=== PATIENT | male | born 1955 | race Hispanic/Latino ===

== ENCOUNTER 2019-02-17 19:20 | Emergency (ER) | payer MEDICARE, SELFPAY ==
[2019-02-17 20:07] LABS: APPEARANCE,URINE Clear (CLEAR); BILIRUBIN,URINE Negative (NEGATIVE); COLOR,URINE Yellow (YELLOW); GLUCOSE, URINE (UA) Negative (NEGATIVE); KETONES,URINE Negative (NEGATIVE); LEUKOCYTE ESTERASE ,URINE Negative (NEGATIVE); NITRATE,URINE Negative (NEGATIVE); OCCULT BLOOD,URINE Large (NEGATIVE); PH,URINE 5.5 (5.0-8.0); PROTEIN,URINE Negative (NEGATIVE)
[2019-02-17 20:12] LABS: BACTERIA,URINE Few /HPF (None Seen); MUCUS,URINE None Seen LPF (None Seen); SQUAMOUS EPITHELIAL CELL,UR 0-2 /HPF (0-2)
[2019-02-17 20:14] LABS: BASOPHILS % (AUTO) 0.7 % (0.0-5.0); EOSINOPHILS % (AUTO) 1.3 % (0.0-8.0); HEMATOCRIT 42.1 % (42-54); LYMPHOCYTES % (AUTO) 20.1 % (21.0-51.0); MEAN CORPUSCULAR HEMOGLOBIN 28.6 pg (27.0-33.0); MEAN CORPUSCULAR HGB CONC 34.2 g/dL (32.0-36.0); MEAN CORPUSCULAR VOLUME 83.6 fL (79-99); MONOCYTES % (AUTO) 7.8 % (3.0-13.0); NEUTROPHILS % (AUTO) 70.1 % (40.0-77.0); PLATELET COUNT (AUTO) 212 K/uL (130-400); RED BLOOD CELL COUNT(AUTO) 5.04 MIL/uL (4.50-6.20); RED CELL DISTRIBUTION WIDTH 14.4 % (11.0-15.5); WHITE BLOOD COUNT (AUTO) 9.7 K/uL (4.8-10.8)
[2019-02-17 20:23] LABS: CREATININE 1.1 mg/dL (0.5-1.5); POTASSIUM 3.9 mmol/L (3.5-5.1)
== END 2019-02-17 21:39 | disposition home or self-care (01) ==
LOC: EDH 19:20
DX: N39.0 Urinary tract infection, site not specified (principal); I10 Essential (primary) hypertension; R33.9 Retention of urine, unspecified; E78.5 Hyperlipidemia, unspecified; Z98.890 Other specified postprocedural states; Z88.0 Allergy status to penicillin
CPT/HCPCS: 36415; 51702; 80048; 81001; 85025

== ENCOUNTER 2019-03-17 21:32 | Emergency (ER) | payer MEDICARE ==
[2019-03-17 22:14] LABS: APPEARANCE,URINE CLOUDY (CLEAR); BILIRUBIN,URINE NEGATIVE (NEGATIVE); COLOR,URINE YELLOW (YELLOW); GLUCOSE, URINE (UA) NEGATIVE (NEGATIVE); KETONES,URINE 5 mg/dL (NEGATIVE); LEUKOCYTE ESTERASE ,URINE NEGATIVE (NEGATIVE); NITRATE,URINE NEGATIVE (NEGATIVE); OCCULT BLOOD,URINE LARGE (NEGATIVE); PH,URINE 7.5 (5.0-8.0); PROTEIN,URINE TRACE mg/dL (NEGATIVE)
[2019-03-17 22:19] LABS: BACTERIA,URINE Rare /HPF (None Seen); RBC,URINE 26-50 /HPF (0-1); SQUAMOUS EPITHELIAL CELL,UR Rare /HPF (0-2); WBC,URINE 0-1 /HPF (0-1)
[2019-03-17] MEDS ORDERED: MORPHINE SULFATE 2 MG/ML 1ML SYG ONE (23:02)
[2019-03-17 23:21] LABS: BASOPHILS % (AUTO) 0.6 % (0.0-5.0); EOSINOPHILS % (AUTO) 0.4 % (0.0-8.0); HEMATOCRIT 41.7 % (42-54); LYMPHOCYTES % (AUTO) 12.3 % (21.0-51.0); MEAN CORPUSCULAR HEMOGLOBIN 28.9 pg (27.0-33.0); MEAN CORPUSCULAR VOLUME 85.1 fL (79-99); MONOCYTES % (AUTO) 6.9 % (3.0-13.0); NEUTROPHILS % (AUTO) 79.8 % (40.0-77.0); PLATELET COUNT (AUTO) 195 K/uL (130-400); RED CELL DISTRIBUTION WIDTH 13.9 % (11.0-15.5); WHITE BLOOD COUNT (AUTO) 9.8 K/uL (4.8-10.8)
[2019-03-17 23:43] LABS: CREATININE 1.8 mg/dL (0.5-1.5); POTASSIUM 3.9 mmol/L (3.5-5.1)
[2019-03-17 23:50] LABS: ALBUMIN 4.1 g/dL (3.5-5.0); BILIRUBIN,TOTAL 0.6 mg/dL (0.2-1.0); TOTAL PROTEIN, SERUM 7.2 g/dL (6.0-8.3)
[2019-03-18] MEDS ORDERED: ONDANSETRON HCL 4 MG/2 ML VIAL ONE (00:09)
[2019-03-18] MEDS ORDERED: CEFTRIAXONE SODIUM 1 GM ONE (00:10)
[2019-03-18] MEDS ORDERED: KETOROLAC TROMETHAMINE 15MG/ML ONE (00:10)
[2019-03-18] MEDS ORDERED: MORPHINE SULFATE 2 MG/ML 1ML SYG ONE (00:10)
[2019-03-18] MEDS ORDERED: METHYLPREDNISOLONE SOD SUCC 125MG/2ML VIAL ONE (00:10)
== END 2019-03-18 01:07 | disposition home or self-care (01) ==
LOC: EDH 21:32
DX: N23 Unspecified renal colic (principal); N13.39 Other hydronephrosis; E78.5 Hyperlipidemia, unspecified; I10 Essential (primary) hypertension; Z85.46 Personal history of malignant neoplasm of prostate; Z79.899 Other long term (current) drug therapy
CPT/HCPCS: 36415; 74176; 80053; 81001; 83690; 85025; 96374; 96375; 96376; 99285; J0696; J1885; J2405; J2930

== ENCOUNTER → 2019-04-13 | Outpatient (CLI) | payer MEDICARE | END | disposition home or self-care (01) | LOC: RAH 11:41 | PROVIDERS: ATTEND Urology | DX: N20.1 Calculus of ureter (principal); N28.1 Cyst of kidney, acquired | CPT/HCPCS: 76770 ==

== ENCOUNTER 2019-11-11 16:29 | Inpatient (IN) | payer MEDICARE ==
[~2019-11-11] VITALS: Ht 167.6 cm; Wt 100.0 kg
[2019-11-11] MEDS ORDERED: ZOSYN 3.375GM+NS 50ML 50 ML IV ONE (18:59)
[2019-11-11] MEDS ORDERED: KETOROLAC TROMETHAMINE 15MG/ML ONE (18:59)
[2019-11-11 19:08] LABS: BASOPHILS % (AUTO) 0.9 % (0.0-5.0); EOSINOPHILS % (AUTO) 2.2 % (0.0-8.0); HEMATOCRIT 43.1 % (42-54); LYMPHOCYTES % (AUTO) 24.4 % (21.0-51.0); MEAN CORPUSCULAR HEMOGLOBIN 27.2 pg (27.0-33.0); MEAN CORPUSCULAR VOLUME 84.8 fL (79-99); MONOCYTES % (AUTO) 10.4 % (3.0-13.0); NEUTROPHILS % (AUTO) 61.8 % (40.0-77.0); PLATELET COUNT (AUTO) 215 K/uL (130-400); RED BLOOD CELL COUNT(AUTO) 5.08 MIL/uL (4.50-6.20); RED CELL DISTRIBUTION WIDTH 13.3 % (11.0-15.5); WHITE BLOOD COUNT (AUTO) 7.7 K/uL (4.8-10.8)
[2019-11-11 19:25] LABS: POTASSIUM 3.7 mmol/L (3.5-5.1)
[2019-11-11 19:29] LABS: ALBUMIN 3.9 g/dL (3.5-5.0); BILIRUBIN,TOTAL 0.5 mg/dL (0.2-1.0); CRP QUANTITATIVE 34.5 mg/L (0.00-9.0); TOTAL PROTEIN, SERUM 7.4 g/dL (6.0-8.3)
[2019-11-11 19:41] LABS: INR 0.9 (0.85-1.15); PROTHROMBIN TIME 9.8 SEC (9.6-11.6)
[2019-11-11 20:19] LABS: ERYTHROCYTE SEDIMENTATION RATE 15 MM/HR (0-20)
[2019-11-12] MEDS ORDERED: ONDANSETRON HCL 4 MG/2 ML VIAL IV PRN
[2019-11-12] MEDS ORDERED: KETOROLAC TROMETHAMINE 15MG/ML IV PRN
[2019-11-12] MEDS ORDERED: ACETAMINOPHEN 325 MG TAB PO PRN ×2
[2019-11-12 03:00] VITALS: BP 163/96
[2019-11-12] MEDS ORDERED: MELO-108 PO (03:53)
[2019-11-12] MEDS ORDERED: LISI40TA4 PO (03:53)
[2019-11-12] MEDS ORDERED: METO50TA18 PO (03:53)
[2019-11-12 04:33] LABS: BASOPHILS % (AUTO) 0.8 % (0.0-5.0); HEMATOCRIT 39.4 % (42-54); MEAN CORPUSCULAR HEMOGLOBIN 26.8 pg (27.0-33.0); MEAN CORPUSCULAR VOLUME 83.8 fL (79-99); MONOCYTES % (AUTO) 10.3 % (3.0-13.0); NEUTROPHILS % (AUTO) 54.4 % (40.0-77.0); PLATELET COUNT (AUTO) 191 K/uL (130-400); RED CELL DISTRIBUTION WIDTH 13.3 % (11.0-15.5); WHITE BLOOD COUNT (AUTO) 6.2 K/uL (4.8-10.8)
[2019-11-12 05:12] LABS: ALBUMIN 3.4 g/dL (3.5-5.0); BILIRUBIN,TOTAL 0.7 mg/dL (0.2-1.0); POTASSIUM 3.9 mmol/L (3.5-5.1); TOTAL PROTEIN, SERUM 6.5 g/dL (6.0-8.3)
[2019-11-12 05:46] LABS: ERYTHROCYTE SEDIMENTATION RATE 15 MM/HR (0-20)
[2019-11-12] MEDS ORDERED: ZOSYN 3.375GM+NS 50ML 50 ML IV SCH (07:13)
[2019-11-12 08:30] VITALS: BP 168/91
[2019-11-12] MEDS: FAMOTIDINE/PF 20 MG/2 ML VIAL IV SCH ×2 (09:03→20:23)
[2019-11-12] MEDS ORDERED: VANCOMYCIN PROTOCOL PER PHARMACY IV SCH (12:00)
[2019-11-12] MEDS ORDERED: VANCOMYCIN 2 GM in SODIUM CHLORIDE 0.9% 500ML 500 ML IV ONE (13:00)
[2019-11-12] MEDS ORDERED: COMPOUND IV REFRIGERATED 1 EACH IVSOLN MISC PRN (13:00)
[2019-11-12 13:44] VITALS: BP 179/94
--- NOTE | 2019-11-12 14:38 | NUR ---
DC PLAN VISITED WITH PATIENT. PATIENT LIVES WITH SPOUSE. INDEPENDENT ABLE TO PERFORM ADL'S. PATIENT HAS NO SERVICES OR DME'S. FEELS SAFE TO RETURN HOME. Addendum: 11/12/19 at 1439 by OMAR SANDOVAL RN CM Amended: Links added.
[2019-11-12] MEDS: LEVOFLOXACIN 500 MG/D5W 100 ML 100 ML IV SCH (17:58)
[2019-11-12] MEDS ORDERED: PHARMACY COMMUNICATION MISC SCH (18:00)
[2019-11-12 19:30] VITALS: BP 185/88
[2019-11-12] MEDS ORDERED: HYDRALAZINE HCL 20 MG/ML VIAL IV PRN (20:00)
[2019-11-12] MEDS: LISINOPRIL 20 MG TABLET PO SCH (20:23)
[2019-11-12] MEDS: METOPROLOL TARTRATE 50 MG TAB PO SCH (20:23)
[2019-11-12 23:14] VITALS: BP 162/84
[2019-11-13] MEDS: VANCOMYCIN 1GM+NS 250ML 250 ML IV SCH ×2 (00:08→12:38)
[2019-11-13 03:40] VITALS: BP 152/80
[2019-11-13 05:38] LABS: HEMOGLOBIN A1C 6.6 % (4.0-6.0)
--- NOTE | 2019-11-13 06:53 | NUR ---
PATIENT UPDATE Pt's 4th finger on the rt hand still with some swelling but overall able to move the rt hand better. Stated feeling a whole lot better. Continues with the antibiotic as prescribed. No complaints of pain the whole night.
[2019-11-13] MEDS: LISINOPRIL 20 MG TABLET PO SCH ×2 (09:24→22:03)
[2019-11-13] MEDS: METOPROLOL TARTRATE 50 MG TAB PO SCH ×2 (09:24→22:03)
[2019-11-13] MEDS: FAMOTIDINE/PF 20 MG/2 ML VIAL IV SCH ×2 (09:25→22:03)
[2019-11-13 09:26] VITALS: BP 170/77
[2019-11-13 12:30] VITALS: BP 165/84
[2019-11-13] MEDS ORDERED: GADODIAMIDE 10 MMOL/20 ML VIAL IV ONE (15:39)
[2019-11-13] MEDS ORDERED: DIPH,PERTUSS(ACELL),TET VAC/PF 0.5 ML VIAL IM ONE (16:00)
[2019-11-13] MEDS ORDERED: AMLODIPINE BESYLATE 5 MG TAB PO SCH (18:00)
[2019-11-13] MEDS: LEVOFLOXACIN 500 MG/D5W 100 ML 100 ML IV SCH (18:47)
[2019-11-13 20:59] VITALS: BP 156/84
[2019-11-14 00:05] VITALS: BP 141/70
[2019-11-14] MEDS: VANCOMYCIN 1GM+NS 250ML 250 ML IV SCH (00:27)
[2019-11-14 04:51] VITALS: BP 136/77
--- NOTE | 2019-11-14 07:54 | NUR ---
COMFORT Pt able to move the rt hand better , swelling less. Medicated once last night with toradol 15 mg given iv for mostly the rt upper arm discomfort more than the 4th finger on the rt hand. Pain med afforded relief, vanco trough last night at 7.8, result faxed to pharmacy.
[2019-11-14] MEDS ORDERED: VANCOMYCIN 1GM+NS 250ML 250 ML IV SCH (09:00)
[2019-11-14] MEDS ORDERED: AMLODIPINE BESYLATE 5 MG TAB PO SCH (09:00)
[2019-11-14 09:08] VITALS: BP 151/80
[2019-11-14] MEDS: METOPROLOL TARTRATE 50 MG TAB PO SCH (10:27)
[2019-11-14] MEDS: LISINOPRIL 20 MG TABLET PO SCH (10:28)
[2019-11-14] MEDS: FAMOTIDINE/PF 20 MG/2 ML VIAL IV SCH (10:29)
[2019-11-14 11:47] VITALS: BP 155/60
[2019-11-14] MEDS ORDERED: CEFUROXIME AXETIL 250 MG TABLET PO SCH (12:00)
[2019-11-14] MEDS ORDERED: DOXYCYCLINE HYCLATE 100 MG TABLET PO SCH (12:00)
[2019-11-14] MEDS ORDERED: PHARMACY COMMUNICATION MISC SCH (12:45)
[2019-11-14 16:13] VITALS: BP 178/85
[2019-11-14 16:31] VITALS: BP 164/69
--- NOTE | 2019-11-14 18:40 | NUR ---
PER MD ORDERS DISCHARGE INSTRUCTIONS GIVEN TO PT AND DAUGHTER NANI. INSTRUCTED TO FOLLOW UP WITH DR CABALLERO IN 2 WEEKS,, AND ON THE IMPORTANCE OF CONTINUING TO TAKE BLOOD PRESSURE MEDS AND ANTIBIOTICS PRESCRIBED BY MD. BOTH STATE UNDERSTANDING. IV REMOVED, TIP INTACT.
== END 2019-11-14 17:15 | disposition home or self-care (01) | DRG 603 ==
LOC: EDH 16:29 → EDHIP 23:50 → 3DH 11-12 02:54
PROVIDERS: ADMIT Internal Medicine; ATTEND Internal Medicine
PROC: 3E0234Z Introduction of Serum, Toxoid and Vaccine into Muscle, Percutaneous Approach (ICD-10-PCS; principal; 2019-11-13)
DX: L03.011 Cellulitis of right finger (principal); E78.5 Hyperlipidemia, unspecified; I10 Essential (primary) hypertension; E66.9 Obesity, unspecified; Z68.35 Body mass index [BMI] 35.0-35.9, adult; Z88.0 Allergy status to penicillin; Z85.46 Personal history of malignant neoplasm of prostate; Z23 Encounter for immunization
CPT/HCPCS: 36415; 73140; 73200; 73220; 80053; 80202; 82948; 83036; 85025; 85610; 85651; 85730; 86140; 87040; 90715; A9579; G0378; J0360; J1885; J1956; J2543; J3370; J3490; J7040

== ENCOUNTER 2020-06-09 01:13 | Emergency (ER) | payer MEDICARE ==
[~2020-06-09 01:13] MED LIST: LISI40TA4 PO; MELO-108 PO; METO50TA18 PO
[2020-06-09] MEDS ORDERED: ASPIRIN 325 MG TABLET ONE (01:22)
[2020-06-09 01:26] LABS: BASOPHILS % (AUTO) 0.8 % (0.0-5.0); EOSINOPHILS % (AUTO) 2.6 % (0.0-8.0); HEMATOCRIT 43.7 % (42-54); LYMPHOCYTES % (AUTO) 33.5 % (21.0-51.0); MEAN CORPUSCULAR HEMOGLOBIN 27.8 pg (27.0-33.0); MEAN CORPUSCULAR HGB CONC 33.2 g/dL (32.0-36.0); MEAN CORPUSCULAR VOLUME 83.9 fL (79-99); MONOCYTES % (AUTO) 9.2 % (3.0-13.0); NEUTROPHILS % (AUTO) 53.4 % (40.0-77.0); PLATELET COUNT (AUTO) 223 K/uL (130-400); RED BLOOD CELL COUNT(AUTO) 5.21 MIL/uL (4.50-6.20); RED CELL DISTRIBUTION WIDTH 12.6 % (11.0-15.5); WHITE BLOOD COUNT (AUTO) 7.6 K/uL (4.8-10.8)
[2020-06-09 01:39] LABS: CREATININE 1.1 mg/dL (0.5-1.5); POTASSIUM 3.7 mmol/L (3.5-5.1)
[2020-06-09 01:40] LABS: INR 0.95 (0.85-1.15); PROTHROMBIN TIME 10.2 SEC (9.6-11.6)
[2020-06-09 01:42] LABS: PARTIAL THROMBOPLASTIN TIME 26.5 SEC (26.3-35.5)
[2020-06-09 01:44] LABS: ALBUMIN 3.7 g/dL (3.5-5.0); BILIRUBIN,TOTAL 0.4 mg/dL (0.2-1.0); TOTAL PROTEIN, SERUM 6.8 g/dL (6.0-8.3)
[2020-06-09] MEDS ORDERED: KETOROLAC TROMETHAMINE 15MG/ML ONE (02:10)
[2020-06-09] MEDS ORDERED: DIAZEPAM 5 MG/ML 2 ML SYG ONE (02:10)
== END 2020-06-09 03:49 | disposition home or self-care (01) ==
LOC: EDH 01:13
DX: G44.229 Chronic tension-type headache, not intractable (principal); E78.5 Hyperlipidemia, unspecified; I10 Essential (primary) hypertension; Z88.0 Allergy status to penicillin; Z79.899 Other long term (current) drug therapy
CPT/HCPCS: 36415; 71045; 80053; 84484; 85025; 85610; 85730; 93005; 96374; 96375; 99285; J1885; J3360

== ENCOUNTER → 2020-07-05 | Outpatient (CLI) | payer MEDICARE ==
[~2020-07-05] MED LIST changes: +IOHEXOL-350 50ML VIAL IV ONE
== END | disposition home or self-care (01) ==
LOC: RAH 12:50
PROVIDERS: ATTEND Internal Medicine
DX: R51.9 Headache, unspecified (principal)
CPT/HCPCS: 70470; Q9967

== ENCOUNTER 2021-03-15 02:37 | Emergency (ER) | payer MEDICARE ==
[~2021-03-15] VITALS: Ht 170.2 cm; Wt 105.2 kg
[~2021-03-15 02:37] MED LIST changes: -IOHEXOL-350 50ML VIAL IV ONE; -LISI40TA4 PO; +LISI40TA9 PO
[2021-03-15] MEDS ORDERED: 0.9%NACL 1000ML 1,000 ML IV ONE (03:30)
[2021-03-15 03:37] LABS: EOSINOPHILS % (AUTO) 2.6 % (0.0-8.0); HEMATOCRIT 42.4 % (42-54); LYMPHOCYTES % (AUTO) 27.3 % (21.0-51.0); MEAN CORPUSCULAR HEMOGLOBIN 28.3 pg (27.0-33.0); MEAN CORPUSCULAR HGB CONC 33.3 g/dL (32.0-36.0); MONOCYTES % (AUTO) 9.4 % (3.0-13.0); NEUTROPHILS % (AUTO) 59.1 % (40.0-77.0); PLATELET COUNT (AUTO) 202 K/uL (130-400); RED BLOOD CELL COUNT(AUTO) 4.99 MIL/uL (4.50-6.20); RED CELL DISTRIBUTION WIDTH 13.4 % (11.0-15.5)
[2021-03-15 03:41] LABS: CREATININE 1.1 mg/dL (0.5-1.5)
[2021-03-15 03:44] LABS: APPEARANCE,URINE Clear (CLEAR); BILIRUBIN,URINE Negative (NEGATIVE); COLOR,URINE Yellow (YELLOW); GLUCOSE, URINE (UA) Negative (NEGATIVE); KETONES,URINE Negative (NEGATIVE); LEUKOCYTE ESTERASE ,URINE Negative (NEGATIVE); NITRATE,URINE Negative (NEGATIVE); OCCULT BLOOD,URINE Negative (NEGATIVE); PH,URINE 5.5 (5.0-8.0); PROTEIN,URINE Negative (NEGATIVE)
[2021-03-15 03:45] LABS: BILIRUBIN,TOTAL 0.8 mg/dL (0.2-1.0); TOTAL PROTEIN, SERUM 7.2 g/dL (6.0-8.3)
[2021-03-15] MEDS ORDERED: ORPH-43 PO (05:26)
[2021-03-15] MEDS ORDERED: MELO7.5T12 PO (05:26)
[2021-03-15] MEDS ORDERED: DICY20TA2 PO (05:26)
[2021-03-15] MEDS ORDERED: KETOROLAC 30MG VIAL (30MG/ML) IV ONE (05:30)
[2021-03-15 05:35] VITALS: BP 133/77
== END 2021-03-15 06:03 | disposition home or self-care (01) ==
LOC: EDH 02:37
DX: N23 Unspecified renal colic (principal); E78.5 Hyperlipidemia, unspecified; I10 Essential (primary) hypertension; E86.1 Hypovolemia; Z79.1 Long term (current) use of non-steroidal anti-inflammatories (NSAID); Z79.899 Other long term (current) drug therapy; Z87.442 Personal history of urinary calculi; Z88.0 Allergy status to penicillin
CPT/HCPCS: 36415; 74176; 80053; 81003; 83690; 85025; 96361; 96374; 99284; J1885; J7030

== ENCOUNTER 2023-01-31 10:17 | Emergency (ER) | payer MEDICARE ==
[~2023-01-31] VITALS: Ht 170.2 cm; Wt 104.3 kg
[~2023-01-31 10:17] MED LIST changes: +DICY20TA2 PO; +MELO7.5T12 PO; +ORPH100T4 PO
[2023-01-31 11:03] LABS: BASOPHILS # (AUTO) 0.04 K/uL (0.00-0.20); BASOPHILS % (AUTO) 0.9 % (0.0-5.0); EOSINOPHILS # (AUTO) 0.06 K/uL (0.00-0.70); EOSINOPHILS % (AUTO) 1.4 % (0.0-8.0); HEMATOCRIT 40.3 % (42-54); IMMATURE GRANULOCYTE ABSOLUTE 0.11 K/uL (0-1); LYMPHOCYTES # (AUTO) 0.8 K/uL (1.0-4.8); LYMPHOCYTES % (AUTO) 19.3 % (21.0-51.0); MEAN CORPUSCULAR HEMOGLOBIN 27.1 pg (27.0-33.0); MEAN CORPUSCULAR HGB CONC 32.5 g/dL (32.0-36.0); MEAN CORPUSCULAR VOLUME 83.4 fL (79-99); MONOCYTES # (AUTO) 0.4 K/uL (0.1-1.0); MONOCYTES % (AUTO) 10.2 % (3.0-13.0); NEUTROPHILS # (AUTO) 2.8 K/uL (1.8-7.7); NEUTROPHILS % (AUTO) 65.6 % (40.0-77.0); PLATELET COUNT (AUTO) 181 K/uL (130-400); RED BLOOD CELL COUNT(AUTO) 4.83 MIL/uL (4.50-6.20); RED CELL DISTRIBUTION WIDTH 13.2 % (11.0-15.5); WHITE BLOOD COUNT (AUTO) 4.3 K/uL (4.8-10.8)
[2023-01-31 11:18] LABS: ALBUMIN 3.6 g/dL (3.5-5.0); BILIRUBIN,TOTAL 0.6 mg/dL (0.2-1.0); CREATININE 0.8 mg/dL (0.5-1.5); POTASSIUM 4.2 mmol/L (3.5-5.1); TOTAL PROTEIN, SERUM 6.9 g/dL (6.0-8.3)
[2023-01-31 11:27] LABS: INR < 0.93 (0.85-1.15); PROTHROMBIN TIME 10.3 SEC (9.6-11.6)
[2023-01-31 11:28] LABS: PARTIAL THROMBOPLASTIN TIME 27.3 SEC (26.3-35.5)
[2023-01-31 11:32] LABS: B-TYPE NATRIURETIC PEPTIDE 39 pg/mL (0-100)
[2023-01-31 12:05] LABS: ADD UA MICROSCOPIC NO; APPEARANCE,URINE CLEAR (CLEAR); BILIRUBIN,URINE NEGATIVE (NEGATIVE); COLOR,URINE LIGHT-YELLOW (YELLOW); GLUCOSE, URINE (UA) NEGATIVE (NEGATIVE); KETONES,URINE NEGATIVE (NEGATIVE); LEUKOCYTE ESTERASE ,URINE NEGATIVE Leu/uL (NEGATIVE); NITRATE,URINE NEGATIVE (NEGATIVE); OCCULT BLOOD,URINE NEGATIVE (NEGATIVE); PH,URINE 5.5 (5.0-8.0); PROTEIN,URINE NEGATIVE (NEGATIVE); UROBILINOGEN,URINE 0.2 mg/dL (0.2-1.0)
[2023-01-31] MEDS ORDERED: MECLIZINE HCL 25 MG TABLET PO ONE (14:00)
[2023-01-31] MEDS ORDERED: SOLU-MEDROL 40MG VIAL IVP ONE (14:00)
[2023-01-31] MEDS ORDERED: MECL-160 PO (16:36)
[2023-01-31] MEDS ORDERED: FLUT16H EN (16:36)
[2023-01-31 16:50] VITALS: BP 156/88; PULSE 72; RESP 16; O2SAT 98
== END 2023-01-31 17:05 | disposition home or self-care (01) ==
LOC: EDH 10:17
DX: H81.10 Benign paroxysmal vertigo, unspecified ear (principal); E11.9 Type 2 diabetes mellitus without complications; I10 Essential (primary) hypertension; Z79.1 Long term (current) use of non-steroidal anti-inflammatories (NSAID); Z79.899 Other long term (current) drug therapy; Z88.0 Allergy status to penicillin
CPT/HCPCS: 99285; 96374; 70450; 71045; 82550; 84484; 80053; 83880; 85025; 85610; 85730; 81003; 36415; 93005; J2920

== ENCOUNTER 2023-07-08 09:58 | Emergency (ER) | payer MEDICARE ==
[~2023-07-08] VITALS: Ht 172.7 cm; Wt 104.3 kg
[~2023-07-08 09:58] MED LIST changes: +FLUT16H EN; +MECL-302 PO
[2023-07-08 10:25] LABS: RAPID GROUP A STREP negative (NEGATIVE)
[2023-07-08 10:37] LABS: SARS-CoV-2, RNA, NAAT POSITIVE SARS CoV-2 (NEGATIVE)
[2023-07-08 10:43] LABS: INFLUENZA TYPE A Negative For Type A (NEGATIVE); INFLUENZA TYPE B Negative For Type B (NEGATIVE)
[2023-07-08] MEDS ORDERED: PRED20TA3 PO (13:15)
[2023-07-08] MEDS ORDERED: BROM118S48 PO (13:15)
[2023-07-08 13:26] VITALS: BP 155/80; PULSE 72; RESP 16; O2SAT 97
== END 2023-07-08 13:30 | disposition home or self-care (01) ==
LOC: EDH 09:58
DX: U07.1 COVID-19 (principal); B34.9 Viral infection, unspecified; I10 Essential (primary) hypertension; E11.9 Type 2 diabetes mellitus without complications; Z79.899 Other long term (current) drug therapy; Z98.890 Other specified postprocedural states; Z88.0 Allergy status to penicillin
CPT/HCPCS: 71045; 87635; 87804; 87880

== ENCOUNTER 2024-01-23 06:09 | Emergency (ER) | payer MEDICARE ==
[~2024-01-23] VITALS: Ht 172.7 cm; Wt 103.4 kg
[~2024-01-23 06:09] MED LIST changes: +BROM118S48 PO; +PRED20TA3 PO
[2024-01-23 07:02] LABS: BASOPHILS # (AUTO) 0.07 K/uL (0.00-0.20); BASOPHILS % (AUTO) 1.3 % (0.0-5.0); EOSINOPHILS # (AUTO) 0.11 K/uL (0.00-0.70); HEMATOCRIT 40.1 % (42-54); IMMATURE GRANULOCYTE ABSOLUTE 0.02 K/uL (0-1); LYMPHOCYTES # (AUTO) 1.4 K/uL (1.0-4.8); LYMPHOCYTES % (AUTO) 25.2 % (21.0-51.0); MEAN CORPUSCULAR HEMOGLOBIN 27.9 pg (27.0-33.0); MEAN CORPUSCULAR HGB CONC 33.2 g/dL (32.0-36.0); MEAN CORPUSCULAR VOLUME 84.1 fL (79-99); MONOCYTES # (AUTO) 0.5 K/uL (0.1-1.0); MONOCYTES % (AUTO) 9.6 % (3.0-13.0); NEUTROPHILS # (AUTO) 3.3 K/uL (1.8-7.7); NEUTROPHILS % (AUTO) 61.5 % (40.0-77.0); PLATELET COUNT (AUTO) 172 K/uL (130-400); RED BLOOD CELL COUNT(AUTO) 4.77 MIL/uL (4.50-6.20); RED CELL DISTRIBUTION WIDTH 13.6 % (11.0-15.5); WHITE BLOOD COUNT (AUTO) 5.4 K/uL (4.8-10.8)
[2024-01-23 07:38] LABS: ALBUMIN 3.6 g/dL (3.5-5.0); BILIRUBIN,TOTAL 0.8 mg/dL (0.2-1.0); POTASSIUM 4.5 mmol/L (3.5-5.1); TOTAL PROTEIN, SERUM 6.7 g/dL (6.0-8.3)
[2024-01-23] MEDS: KETOROLAC 15MG/ML VIAL (15MG/ML) IM ONE (08:43)
[2024-01-23 10:08] LABS: INFLUENZA TYPE A Negative For Type A (NEGATIVE); INFLUENZA TYPE B Negative For Type B (NEGATIVE)
[2024-01-23 10:30] LABS: SARS-CoV-2, RNA, NAAT NEGATIVE SARS CoV-2 (NEGATIVE)
[2024-01-23] MEDS: amLODIPine 2.5 MG TAB PO ONE (10:31)
[2024-01-23] MEDS ORDERED: METOPROLOL TARTRATE 1 MG/ML 5ML VIAL IV ONE (11:00)
[2024-01-23] MEDS: SOLU-MEDROL 40MG VIAL IVP ONE (11:29)
[2024-01-23] MEDS: acetaMINOPHEN 500 MG TABLET PO ONE (13:13)
[2024-01-23] MEDS: hydrALAZine HCL 10 MG TABLET PO SCH (13:44)
[2024-01-23 14:37] VITALS: BP 151/82; PULSE 63; RESP 17; O2SAT 98
== END 2024-01-23 14:51 | disposition home or self-care (01) ==
LOC: EDH 06:09
DX: R51.9 Headache, unspecified (principal); I10 Essential (primary) hypertension; E11.9 Type 2 diabetes mellitus without complications; E66.01 Morbid (severe) obesity due to excess calories; Z20.822 Contact with and (suspected) exposure to COVID-19; Z79.52 Long term (current) use of systemic steroids; Z79.899 Other long term (current) drug therapy; Z88.0 Allergy status to penicillin; Z98.890 Other specified postprocedural states
CPT/HCPCS: 99285; 96374; 71045; 87635; 80053; 85025; 87804 ×2; 82948; 36415; 96372; J2919; J1885

== ENCOUNTER 2025-03-09 10:12 | Emergency (ER) | payer OTHER, MEDICARE ==
[~2025-03-09] VITALS: Ht 170.2 cm; Wt 104.3 kg
[~2025-03-09 10:12] MED LIST changes: +LISI40TA15 PO; -LISI40TA9 PO
--- NOTE | 2025-03-09 10:25 | ERN ---
ED Note History of Present Illness Stated Complaint: DIZZY Chief Complaint: Dizzy/Light Headed Time Seen by MD: 10:14 Dictation: PATIENT IS A 69-YEAR-OLD MALE COMING IN TODAY WITH COMPLAINTS OF HAVING A FRONTAL HEADACHE BEING LIGHTHEADED FOR THE LAST THREE DAYS. HE HAS HAD NO NAUSEA NO VOMITING NO DIARRHEA NO CHEST PAIN NO BACK PAIN NO SOB. HE STATES HE HAS HAD INTERMITTENT BOUTS OF DIZZINESS. NIH IS 0 ON APPROACH AND GAIT IS STEADY TO TRIAGE ROOM. HE STATES HE HAS TAKEN A SINGLE MEDICATION FOR HEADACHE IN THE LAST THREE DAYS AND DID NOT GO SEE HIS DOCTOR ON-CALL. DENIES FEVER CHILLS NO LOSS OF TASTE OR SMELL. Allergies: Coded Allergies: Penicillins (Unverified Allergy, Unknown, 02/17/19) Home Meds Active Scripts Prednisone (Prednisone) 20 Mg Tablet, 2 TAB PO DAILY for 5 Days, #10 TAB 0 Refills Prov:ROBB NAVA ENDOSCOPY SPECIALTY TECHNICIAN 07/08/23 D-Methorphan Hb/P-Epd HCl/Bpm (Bromfed Dm Cough Syrup) 2 Mg-30 Mg-10 Mg/5 Ml Syrup, 5 ML PO Q6HPRN PRN for COUGH/COLD SYMPTOMS, #240 ML Prov:ROBB NAVA ENDOSCOPY SPECIALTY TECHNICIAN 07/08/23 Fluticasone Propionate (Flonase Nasal Homer) 50 Mcg/[place], 1 SPRAY EN DAILY for 14 Days, #1 INHALER 0 Refills Prov:NEERU LONGORIA MD 01/31/23 Meclizine HCl (Meclizine HCl) 25 Mg Tablet, 25 MG PO TID PRN for VERTIGO, #30 TAB 0 Refills Prov:NEERU LONGORIA MD 01/31/23 Dicyclomine HCl (Bentyl) 20 Mg Tab, 20 MG PO Q6HPRN, #20 TAB 0 Refills Prov:MARIBELL PEARL MD 03/15/21 Orphenadrine Citrate (Orphenadrine Citrate) 100 Mg Tablet.er, 100 MG PO [id number], #20 TAB 0 Refills Prov:MARIBELL PEARL MD 03/15/21 Meloxicam (Mobic) 7.5 Mg Tablet, 7.5 MG PO DAILY, #10 TAB 0 Refills Prov:MARIBELL PEARL MD 03/15/21 Reported Medications Meloxicam (Meloxicam) 15 Mg Tablet, 15 MG PO DAILY, TAB 11/12/19 Lisinopril (Lisinopril) 40 Mg Tablet, 40 MG PO DAILY, TAB 11/12/19 Metoprolol Tartrate (Metoprolol Tartrate) 50 Mg Tablet, 50 MG PO BID, TAB 11/12/19 Past Medical History Past Medical History: Diabetes-Type II, High Cholesterol, Hypertension Additional Past Medical Hx: PROSTATE Surgical History: None Surgical History Other: PROSTATE SX Family History: Negative Social History: Negative, Lives with family RN Note Reviewed/Agreed w/PFSH: Yes Review of System Dictation CONSTITUTIONAL: NEGATIVE EXCEPT FOR HPI HEAD/FACE: NEGATIVE EXCEPT FOR HPI EENT: NEGATIVE EXCEPT FOR HPI RESPIRATORY: NEGATIVE EXCEPT FOR HPI GASTROINTESTINAL/ABDOMINAL: NEGATIVE EXCEPT FOR HPI GENITOURINARY: NEGATIVE EXCEPT FOR HPI MUSCULOSKELETAL: NEGATIVE EXCEPT FOR HPI INTEGUMENTARY: NEGATIVE EXCEPT FOR HPI NEUROLOGICAL/PSYCH: NEGATIVE EXCEPT FOR HPI FRONTAL HEADACHE INTERMITTENT DIZZINESS HEMATOLOGIC/LYMPHATIC: NEGATIVE EXCEPT FOR HPI ALL SYSTEMS NEGATIVE, EXCEPT NOTED ABOVE. 13 POINT REVIEW OF SYSTEMS ASSESSED AND ALL NEGATIVE EXCEPT FOR ABOVE. Initial Vital Sign VS Vital Signs Date Time Temp Pulse Resp B/P (MAP) Pulse Ox O2 Delivery O2 Flow Rate FiO2 03/09/25 10:15 97.5 75 17 158/75 100 Room Air 03/09/25 13:23 0 21 Physical Exam Dictation VITAL SIGNS REVIEWED GENERAL APPEARANCE: ALERT, ORIENTED X 3, N MILD ACUTE DISTRESS, WELL DEVELOPED, NOURISHED. HEAD AND FACE: NON-TRAUMATIC. NO FRONTAL ETHMOID OR MAXILLARY TENDERNESS WITH PALPATION EYES: PERRL, PINK CONJUNCTIVAS, EYELID NO TRAUMA, ANTERIOR CHAMBER WITH ARCUS SENILIS. EARS: PINNAS INTACT AND NO SIGNS OF TRAUMA OR ERYTHEMA EAR CANALS CLEAR AND NO DISCHARGE TM NO ERYTHEMA NOSE: NO DISCHARGE, NO BLEEDING. OROPHARYNX: MOUTH NORMAL, TONGUE PINK, PHARYNX CLEAR,NO ERYTHEMA, TONSILS NO EXUDATES, NO ABSCESSES NOTED, MUCOUS MEMBRANE MOIST NECK: SUPPLE, NON-TENDER, NO THYROMEGALY, NO MASSES, NO JVD, NO BRUITS BREAST:DEFERRED CHEST:NO TENDERNESS, NO CREPITUS, NO PARADOXICAL MOVEMENT, NO RETRACTIONS LUNGS:CLEAR, WELL-VENTILATED, SYMMETRIC, NO RALES, NO WHEEZING, NO RHONCHI, NO STRIDOR, GOOD BREATH SOUNDS BILATERALLY HEART: REGULAR RATE, REGULAR RHYTHM, NO MURMUR, NO GALLOPS VASCULAR: NO PERIPHERAL EDEMA, ABDOMEN: SOFT, POSITIVE BOWEL SOUNDS, NONDISTENDED, NO GUARDING, NONTENDER, NO REBOUND, NO MASSES NO HEPATOMEGALY, NO SPLENOMEGALY, NO CHRISTIAN'S SIGN, NO HERNIAS. RECTAL: DEFERRED GENITAL: DEFERRED NEUROLOGICAL: NORMAL SPEECH, MOTOR FUNCTION INTACT, SENSORY FUNCTION INTACT NIH IS 0 MUSCULOSKELETAL: NECK NONTENDER, FULL RANGE OF MOTION, BACK NONTENDER, FULL RANGE OF MOTION, EXTREMITIES: NONTENDER, FULL RANGE OF MOTION SKIN: COLOR PINK, DRY, NO TURGOR, NO RASH, NO LACERATIONS, NO ABRASIONS, NO CONTUSIONS. LYMPHATIC: DEFERRED Results (Laboratory/Radiology) Laboratory/Radiology Laboratory Tests Test 03/09/25 10:25 03/09/25 10:38 03/09/25 13:25 Urine Color LIGHT-YELLOW (YELLOW) Urine Appearance CLEAR (CLEAR) Urine pH 6.0 (5.0-8.0) Urine Specific [place] 1.018 (1.001-1.031) Urine Protein NEGATIVE mg/dL (NEGATIVE) Urine Glucose (UA) NEGATIVE mg/dL (NEGATIVE) Urine Ketones NEGATIVE mg/dL (NEGATIVE) Urine Occult Blood NEGATIVE (NEGATIVE) Urine Nitrate NEGATIVE (NEGATIVE) Urine Bilirubin NEGATIVE mg/dL (NEGATIVE) Urine Urobilinogen 0.2 mg/dL (0.2-1.0) Urine Leukocyte Esterase NEGATIVE Rosie/uL White Blood Count 5.1 K/uL (4.8-10.8) Red Blood Count 4.73 MIL/uL (4.50-6.20) Hemoglobin 13.3 g/dL (14.0-18.0) L Hematocrit 41.6 % (42-54) L Mean Corpuscular Volume 87.9 fL (79-99) Mean Corpuscular Hemoglobin 28.1 pg (27.0-33.0) Mean Corpuscular Hemoglobin Concent 32.0 g/dL (32.0-36.0) Red Cell Distribution Width 13.9 % (11.0-15.5) Platelet Count 169 K/uL (130-400) Mean Platelet Volume 10.3 fL (7.5-10.5) Immature Granulocyte % (Auto) 0.8 % (0-1) Neutrophils (%) (Auto) 66.4 % (40.0-77.0) Lymphocytes (%) (Auto) 21.1 % (21.0-51.0) Monocytes (%) (Auto) 9.7 % (3.0-13.0) Eosinophils (%) (Auto) 1.4 % (0.0-8.0) Basophils (%) (Auto) 0.6 % (0.0-5.0) Neutrophils # (Auto) 3.4 K/uL (1.8-7.7) Lymphocytes # (Auto) 1.1 K/uL (1.0-4.8) Monocytes # (Auto) 0.5 K/uL (0.1-1.0) Eosinophils # (Auto) 0.07 K/uL (0.00-0.70) Basophils # (Auto) 0.03 K/uL (0.00-0.20) Absolute Immature Granulocyte (auto 0.04 K/uL (0-1) Nucleated Red Blood Cells 0.0 % (0.0-0.19) Sodium Level 141 mmol/L (136-145) Potassium Level 4.3 mmol/L (3.5-5.1) Chloride Level 106 mmol/L (101-111) Carbon Dioxide Level 27 mmol/L (21-32) Blood Urea Nitrogen 21 mg/dL (7-18) H Creatinine 0.8 mg/dL (0.5-1.3) Glomerular Filtration Rate Calc 95 mL/min (>90) Random Glucose 145 mg/dL (70-105) H Total Calcium 8.4 mg/dL (8.5-10.1) L Troponin I High Sensitivity 7 ng/L (4-75) SARS-CoV-2 Antigen (Rapid) PRESUMPTIVE NEGATIVE Labs Reviewed?: Yes EKG: (+) NSR EKG Comment: EKG NORMAL SINUS RHYTHM/HEART RATE 69/AXIS NORMAL/NO ECTOPY ED Course ED Course Orders Procedure Category Date Status Time Covid19 (Sars Antigen LAB 03/09/25 Complete Rapid) 10:17 Cbc With Differential LAB 03/09/25 Complete 10:17 Troponin I High LAB 03/09/25 Complete Sensitivity 10:17 Urinalysis Profile LAB 03/09/25 Complete 10:17 12 Lead Ekg Tracing- EKG 03/09/25 Complete Technical 10:17 0.9%Nacl 1000ml (Ns PHA 03/09/25 Complete 1000ml) 10:30 Ketorolac PHA 03/09/25 Complete Tromethamine 15mg/Ml 10:30 Basic Metabolic Panel LAB 03/09/25 Complete 10:17 Current Medications Medications (Trade) Dose Ordered Sig/Jenna Route PRN Reason Start Time Stop Time Status Last Admin Dose Admin Ketorolac Tromethamine (toRADol) 15 mg ONCE ONCE IV 03/09/25 10:30 03/09/25 10:31 DC 03/09/25 13:40 Sodium Chloride 1,000 ml @ 0 mls/hr ONCE ONCE IV 03/09/25 10:30 03/09/25 10:31 DC 03/09/25 13:35 Vital Signs Date Time Temp Pulse Resp B/P (MAP) Pulse Ox O2 Delivery O2 Flow Rate FiO2 03/09/25 13:23 97.5 54 16 136/55 97 Room Air* 0 21 03/09/25 10:15 97.5 75 17 158/75 100 Room Air 1445/PATIENT IS NEUROLOGICALLY INTACT SPEECH IS CLEAR. WORKUP IS ESSENTIALLY UNREMARKABLE HEADACHE HAS RESOLVED AFTER TREATMENT FLUIDS AND TORADOL. NO ADVANCED IMAGING IN IT AND WE WILL HAVE HIM SEE HIS DOCTOR. HEART Score Response (Comments) Value History: Low suspicion (0) 0 Age: > 65yrs (+2) 2 Risk Factors: 1-2 risk factors (+1) 1 Initial Troponin: Normal limit (0) 0 Total 3 Medical Decision Making MDM MDM: DIFFERENTIAL DIAGNOSIS: ACS/AMI/SARS COVID/ELECTROLYTE IMBALANCE/DEHYDRATION/UNCONTROLLED DIABETES/ARRHYTHMIA RATIONALE: TESTS CONSIDERED AND ORDERED SECONDARY TO SHARED DECISION MAKING INCLUDE: EKG/LABS PREVIOUS OUTSIDE RECORDS REVIEWED: OLD ER VISITS. RISK OF COMPLICATION AND/OR MORBIDITY OR MORTALITY OF PATIENT MANAGEMENT: NONE MEDICATIONS-PER MEDICATION RECONCILIATION NEED FOR HOSPITALIZATION: PATIENT DOES NOT MEET CRITERIA FOR HOSPITALIZATION. NONE NEED FOR EMERGENCY MAJOR/MINOR SURGERY: NO THERE ARE NO SOCIAL CONCERNS WITH THIS PATIENT. PRESCRIPTION DRUG MANAGEMENT IBUPROFEN PRESCRIPTIONS WILL INCLUDE SYMPTOMATIC CARE PATIENT'S PRIOR EXTERNAL MEDICAL RECORDS FROM OTHER ER VISITS WERE REVIEWED BY ME INDICATED. PRIOR TESTING AND RESULTS FROM PREVIOUS VISITS WERE REVIEWED. PRIOR TESTS WERE TAKEN INTO ACCOUNT WITH MEDICAL DECISION MAKING AND RESOURCE UTILIZATION, INDEPENDENT HISTORIAN/HISTORIANS WERE USED TO OBTAIN COMPLETE MEDICAL HISTORY. I INDEPENDENTLY INTERPRETED THE TEST THAT WERE PERFORMED, RESULTS WERE REVIEWED BY ME AND CONSIDERED FINDINGS ON RADIOLOGY IF ORDERED. MEDICAL MANAGEMENT AND EXAMINATION INTERPRETATION DISCUSSIONS WERE HAD BY ME WITH OTHER QUALIFIED HEALTHCARE PROFESSIONALS INDICATED FOR THE PATIENT'S CARE. DX & DISP Disposition: Discharge Departure Impression: Primary Impression: Sinus headache Additional Impressions: Dehydration, Benign positional vertigo, Uncontrolled diabetes mellitus Condition: Stable Scripts Meclizine HCl (Meclizine HCl) 25 Mg Tablet 25 MG PO TID for vertigo, #30 TAB 0 Refills Prov: SCAR JOHN NP 03/09/25 Additional Instructions: FOLLOW-UP WITH PRIMARY CARE PROVIDER IN 1 TO 2 DAYS. TAKE MEDICATIONS DIRECTED HERE IN THE EMERGENCY ROOM. OKAY TO CONTINUE HOME MEDICATIONS UNLESS OTHERWISE DISCUSSED DURING YOUR VISIT IN THE EMERGENCY ROOM TODAY. RETURN TO YOUR NEAREST EMERGENCY ROOM IF SYMPTOMS WORSEN OR IF THERE IS NO IMPROVEMENT. CALL 911 IF YOU NEED IMMEDIATE ASSISTANCE. TAKE TYLENOL OR MOTRIN [id number] NEEDED AND IF NO CONTRAINDICATIONS ARE PRESENT. INCREASE ORAL HYDRATION. A WOUND CULTURE OR URINE CULTURE WAS ORDERED HERE IN THE EMERGENCY ROOM DEPARTMENT PLEASE FOLLOW-UP WITH PRIMARY CARE PROVIDER AND ADVISE THEM TO GET REPEAT PORTS FROM OUR FACILITY. IF YOU HAD ANY ARCELIA WRAP/SPLINTS THAT WERE APPLIED HERE, PLEASE DO NOT REMOVE THEM UNTIL YOU SEE YOUR PRIMARY CARE OR SPECIALTY. TAKE MECLIZINE EVERY 8 HOURS WITH FOOD FOR THE NEXT TWO DAYS. TAKE TYLENOL OR MOTRIN [id number] NEEDED FOR YOUR HEADACHE. INCREASE YOUR FLUID INTAKE AND SEE YOUR PRIMARY CARE DOCTOR FOR FOLLOW UP. Referrals: TARAN CHI MD (PCP) Time of Disposition: 14:49 I have reviewed the case, and I agree with, Diagnosis and Plan SCAR JOHN NP Mar 09, 2025 10:25
[2025-03-09 10:37] LABS: APPEARANCE,URINE CLEAR (CLEAR); GLUCOSE, URINE (UA) NEGATIVE (NEGATIVE); LEUKOCYTE ESTERASE ,URINE NEGATIVE Leu/uL (NEGATIVE); NITRATE,URINE NEGATIVE (NEGATIVE); OCCULT BLOOD,URINE NEGATIVE (NEGATIVE)
--- NOTE | 2025-03-09 10:45 | EKG ---
[facility] Test Date: 2025-03-09 Test Time: 10:39:46 Pat Name: RACHEL GONZALEZ Department: ED Room: Gender: M Trading Specialist: [id number]//studant : [id number] Requested By: SCAR JOHN Order Number: [id number] Reading MD: Drew Obrien Measurements Intervals Ransom Rate: 69 P: 22 IA: 142 QRS: 14 QRSD: 83 T: 19 QT: 406 QTc: 435 Interpretive Statements Sinus rhythm Compared to ECG 01/31/2023 10:33:18 No significant changes Electronically Signed On 03-09-2025 21:34:10 CDT by Drew Obrien Please click the below link to view image of tracing.
[2025-03-09 10:46] LABS: ADD UA MICROSCOPIC NO
[2025-03-09 10:50] LABS: IMMATURE GRANULOCYTE ABSOLUTE 0.04 K/uL (0-1); NUCLEATED RED BLOOD CELLS 0.0 % (0.0-0.19); PLATELET COUNT (AUTO) 169 K/uL (130-400); RED BLOOD CELL COUNT(AUTO) 4.73 MIL/uL (4.50-6.20); RED CELL DISTRIBUTION WIDTH 13.9 % (11.0-15.5); WHITE BLOOD COUNT (AUTO) 5.1 K/uL (4.8-10.8)
[2025-03-09 10:56] LABS: CREATININE 0.8 mg/dL (0.5-1.3); GLOMERULAR FILTR. RATE CALC 95.0 mL/min (>90); GLUCOSE,RANDOM 145.0 mg/dL (70-105); SODIUM SERUM 141.0 mmol/L (136-145); UREA NITROGEN, BLOOD 21.0 mg/dL (7-18)
[2025-03-09] MEDS: 0.9%NACL 1000ML 1,000 ML IV ONE (13:35)
[2025-03-09] MEDS ORDERED: MECL-302 PO (14:49)
[2025-03-09 15:02] VITALS: BP 132/58; PULSE 56; RESP 16; TEMP 97.6; O2SAT 97
== END 2025-03-09 15:03 | disposition home or self-care (01) ==
LOC: EDH 10:12
DX: R51.9 Headache, unspecified (principal); E86.0 Dehydration; H81.10 Benign paroxysmal vertigo, unspecified ear; E11.65 Type 2 diabetes mellitus with hyperglycemia; E78.00 Pure hypercholesterolemia, unspecified; I10 Essential (primary) hypertension; Z20.822 Contact with and (suspected) exposure to COVID-19; Z79.1 Long term (current) use of non-steroidal anti-inflammatories (NSAID); Z79.52 Long term (current) use of systemic steroids; Z79.899 Other long term (current) drug therapy; Z88.0 Allergy status to penicillin
CPT/HCPCS: 99284; 96374; 96361; 87426; 84484; 80048; 85025; 81003; 36415; 93005; J1885; J7030